=== PATIENT | female | born 1970 | race Hispanic/Latino ===

== ENCOUNTER 2017-12-07 07:44 | Day surgery (SDC) | payer OTHER ==
[~2017-12-07] VITALS: Ht 160 cm; Wt 87.9 kg
[~2017-12-07 07:44] MED LIST: BIFI4CAP PO; BIOT10005 PO; FENO160 PO; OMEP20CA10 PO; SODIUM CHLORIDE 0.9% 1000ML 1,000 ML IV ONE
[2017-12-07 08:52] VITALS: BP 128/58
[2017-12-07] MEDS ORDERED: PROPOFOL 10 MG/ML 20ML VIAL IV ONE (09:52)
[2017-12-07 10:15] VITALS: BP 105/56
[2018-01-24] MEDS ORDERED: FENO145T37 PO (13:08)
[2018-01-24] MEDS ORDERED: [UNRECOGNIZED DRUG - OTHER] PO (13:08)
== END 2017-12-07 10:50 ==
LOC: DAH 07:44 → ENDO 07:44
PROVIDERS: ATTEND Internal Medicine
DX: K31.89 Other diseases of stomach and duodenum (principal)
CPT/HCPCS: 43239; 81025; A4606; J2704; J7030

== ENCOUNTER 2018-01-28 06:40 | Inpatient (IN) | payer OTHER ==
[2018-01-24 13:05] VITALS: BP 119/65
[~2018-01-28] VITALS: Ht 165.1 cm; Wt 87.6 kg
[2018-01-28] VITALS (25 sets, daily range): BP systolic 80–152; BP diastolic 47–82
[~2018-01-28 06:40] MED LIST changes: -BIFI4CAP PO; -BIOT10005 PO; +FENO145T37 PO; -OMEP20CA10 PO; -SODIUM CHLORIDE 0.9% 1000ML 1,000 ML IV ONE; +WATER FOR INJECTION,STERILE 20 ML VIAL IJ SCH; +[UNRECOGNIZED DRUG - OTHER] PO
[2018-01-28] MEDS ORDERED: DEXAMETHASONE SOD PHOSPHATE 10MG/ML 1ML VIAL ONE ×2 (06:42→09:41)
[2018-01-28] MEDS ORDERED: LIDOCAINE PF 2% 5ML ABBOJECT ONE (06:42)
[2018-01-28] MEDS ORDERED: GLYCOPYRROLATE 0.2 MG/ML 5 ML VIAL ONE (06:42)
[2018-01-28] MEDS ORDERED: PROPOFOL 10 MG/ML 20ML VIAL IV ONE (06:43)
[2018-01-28] MEDS ORDERED: FENTANYL CITRATE PF 50 MCG/1 ML 2ML VIAL ONE ×3 (06:43→08:31)
[2018-01-28] MEDS ORDERED: MIDAZOLAM HCL 1 MG/ML 2ML VIAL ONE (06:43)
[2018-01-28] MEDS ORDERED: LACTATED RINGERS 1000ML 1,000 ML IV ONE (06:44)
[2018-01-28] MEDS: CEFOXITIN SODIUM 2 GM VIAL IVP SCH ×2 (07:00→08:20)
[2018-01-28] MEDS ORDERED: SOY155CA PO (07:22)
[2018-01-28] MEDS ORDERED: OMEP20TA25 PO (07:22)
[2018-01-28] MEDS ORDERED: BIFI4CAP PO (07:22)
[2018-01-28] MEDS ORDERED: BIOT10005 PO (07:22)
[2018-01-28] MEDS ORDERED: LIDOCAINE HCL MDV 0.5% 50ML VIAL IJ ONE (07:52)
[2018-01-28] MEDS ORDERED: CALDOLOR 800MG+NS 250ML 250 ML IV ONE (08:01)
[2018-01-28] MEDS: BUPIVACAINE/EPI/PF 0.5% 30ML VIAL IJ SCH ×2 (08:15→08:30)
[2018-01-28] MEDS ORDERED: BUPIVACAINE/EPI/PF 0.25% 30ML VIAL IJ ONE (08:39)
[2018-01-28] MEDS ORDERED: ROCURONIUM BROMIDE 10MG/1ML 5ML VL ONE ×2 (09:40)
[2018-01-28] MEDS ORDERED: SUCCINYLCHOLINE CHLORIDE 20 MG/ML 10 ML VIAL ONE (09:40)
[2018-01-28] MEDS ORDERED: METOCLOPRAMIDE 10 MG/2 ML VIAL ONE (09:41)
[2018-01-28] MEDS ORDERED: ONDANSETRON HCL MDV 20ML 2 MG/ML VIAL ONE (09:41)
[2018-01-28] MEDS ORDERED: LIDOCAINE HCL 2% JELLY 5 ML ONE (09:41)
[2018-01-28] MEDS ORDERED: LIDOCAINE HCL 4% LTA SOL 4 ML VIAL ONE (09:41)
[2018-01-28] MEDS ORDERED: CEFAZOLIN 2GM / 50 ML 2 GM/50 ML BAG IV SCH (10:15)
[2018-01-28] MEDS ORDERED: MEPERIDINE-PF 25 MG/ML SYG ONE ×2 (10:41→10:57)
[2018-01-28] MEDS ORDERED: SODIUM CHLORIDE 0.9% 1000ML 1,000 ML IV SCH (13:15)
[2018-01-28] MEDS: CEFAZOLIN SODIUM 1 GM VIAL IVP SCH ×2 (13:40→18:47)
[2018-01-28 14:08] LABS: HEMATOCRIT 35.1 % (36-48); MEAN CORPUSCULAR HGB CONC 34.3 g/dL (32.0-36.0); MEAN CORPUSCULAR VOLUME 87.4 fL (79-99); PLATELET COUNT (AUTO) 284 K/uL (130-400); RED BLOOD CELL COUNT(AUTO) 4.01 MIL/uL (4.00-5.50); RED CELL DISTRIBUTION WIDTH 14.1 % (11.0-15.5); WHITE BLOOD COUNT (AUTO) 11.5 K/uL (4.8-10.8)
[2018-01-28] MEDS: MORPHINE SULFATE 4 MG/1ML SYG IVP PRN ×2 (16:51→21:29)
[2018-01-28] MEDS: LACTATED RINGERS 1000ML 1,000 ML IV SCH ×2 (18:08→19:51)
[2018-01-28] MEDS: ONDANSETRON HCL MDV 20ML 2 MG/ML VIAL IVP PRN (19:45)
[2018-01-28] MEDS: FAMOTIDINE 20MG TAB 20 MG TAB PO SCH (19:48)
[2018-01-28] MEDS: ENOXAPARIN SODIUM 30 MG/0.3 ML SQ SCH (19:49)
[2018-01-29] VITALS (7 sets, daily range): BP systolic 91–117; BP diastolic 54–66
[2018-01-29] MEDS: ONDANSETRON HCL MDV 20ML 2 MG/ML VIAL IVP PRN ×3 (02:15→19:15)
[2018-01-29] MEDS: MORPHINE SULFATE 4 MG/1ML SYG IVP PRN ×3 (02:16→19:15)
[2018-01-29] MEDS: LACTATED RINGERS 1000ML 1,000 ML IV SCH ×3 (02:22→17:16)
[2018-01-29 05:49] LABS: BASOPHILS % (AUTO) 0.1 % (0.0-5.0); HEMATOCRIT 29.6 % (36-48); LYMPHOCYTES % (AUTO) 4.3 % (21.0-51.0); MEAN CORPUSCULAR HEMOGLOBIN 28.9 pg (27.0-33.0); MEAN CORPUSCULAR HGB CONC 33.7 g/dL (32.0-36.0); MEAN CORPUSCULAR VOLUME 85.7 fL (79-99); MONOCYTES % (AUTO) 5.8 % (3.0-13.0); NEUTROPHILS % (AUTO) 89.8 % (40.0-77.0); PLATELET COUNT (AUTO) 254 K/uL (130-400); RED BLOOD CELL COUNT(AUTO) 3.46 MIL/uL (4.00-5.50); RED CELL DISTRIBUTION WIDTH 13.7 % (11.0-15.5); WHITE BLOOD COUNT (AUTO) 16.3 K/uL (4.8-10.8)
[2018-01-29 06:08] LABS: CREATININE 0.9 mg/dL (0.5-1.5)
[2018-01-29] MEDS: FAMOTIDINE 20MG TAB 20 MG TAB PO SCH (09:00)
[2018-01-29] MEDS ORDERED: DIATR MEGLU/DIATRIZOATE SODIUM 30 ML BOTTLE ONE (09:23)
[2018-01-29] MEDS: ENOXAPARIN SODIUM 30 MG/0.3 ML SQ SCH ×2 (10:19→19:15)
[2018-01-29] MEDS ORDERED: PANTOPRAZOLE SODIUM 40 MG TABLET.DR PO SCH (21:00)
[2018-01-30] MEDS: LACTATED RINGERS 1000ML 1,000 ML IV SCH ×3 (01:11→20:26)
[2018-01-30 04:10] VITALS: BP 128/67
[2018-01-30 06:10] LABS: BASOPHILS % (AUTO) 0.1 % (0.0-5.0); HEMATOCRIT 23.2 % (36-48); LYMPHOCYTES % (AUTO) 6.3 % (21.0-51.0); MEAN CORPUSCULAR HEMOGLOBIN 29.6 pg (27.0-33.0); MEAN CORPUSCULAR HGB CONC 34.6 g/dL (32.0-36.0); MEAN CORPUSCULAR VOLUME 85.5 fL (79-99); MONOCYTES % (AUTO) 3.7 % (3.0-13.0); NEUTROPHILS % (AUTO) 89.9 % (40.0-77.0); PLATELET COUNT (AUTO) 211 K/uL (130-400); RED BLOOD CELL COUNT(AUTO) 2.72 MIL/uL (4.00-5.50); RED CELL DISTRIBUTION WIDTH 13.9 % (11.0-15.5); WHITE BLOOD COUNT (AUTO) 13.2 K/uL (4.8-10.8)
[2018-01-30 06:19] LABS: CREATININE 0.8 mg/dL (0.5-1.5); POTASSIUM 3.8 mmol/L (3.5-5.1)
[2018-01-30 07:00] VITALS: BP 111/57
[2018-01-30] MEDS: ENOXAPARIN SODIUM 30 MG/0.3 ML SQ SCH (09:00)
[2018-01-30] MEDS: PANTOPRAZOLE 40 MG/VIAL IVP SCH ×2 (10:07→20:24)
[2018-01-30 11:00] VITALS: BP 109/54
[2018-01-30 15:00] VITALS: BP 124/72
[2018-01-30 20:00] VITALS: BP 128/64
[2018-01-30] MEDS: MORPHINE SULFATE 4 MG/1ML SYG IVP PRN (20:21)
[2018-01-31] VITALS: BP 101/54
[2018-01-31 04:00] VITALS: BP 102/56
[2018-01-31 05:28] LABS: BASOPHILS % (AUTO) 0.4 % (0.0-5.0); EOSINOPHILS % (AUTO) 0.4 % (0.0-8.0); HEMATOCRIT 23.2 % (36-48); LYMPHOCYTES % (AUTO) 8.1 % (21.0-51.0); MEAN CORPUSCULAR HEMOGLOBIN 28.5 pg (27.0-33.0); MEAN CORPUSCULAR HGB CONC 33.4 g/dL (32.0-36.0); MEAN CORPUSCULAR VOLUME 85.4 fL (79-99); MONOCYTES % (AUTO) 4.6 % (3.0-13.0); NEUTROPHILS % (AUTO) 86.5 % (40.0-77.0); PLATELET COUNT (AUTO) 238 K/uL (130-400); RED BLOOD CELL COUNT(AUTO) 2.71 MIL/uL (4.00-5.50); RED CELL DISTRIBUTION WIDTH 14.1 % (11.0-15.5); WHITE BLOOD COUNT (AUTO) 13.1 K/uL (4.8-10.8)
[2018-01-31 05:47] LABS: ALBUMIN 2.4 g/dL (3.5-5.0); BILIRUBIN,TOTAL 0.8 mg/dL (0.2-1.0); CREATININE 0.8 mg/dL (0.5-1.5); POTASSIUM 3.6 mmol/L (3.5-5.1); TOTAL PROTEIN, SERUM 6.3 g/dL (6.0-8.3)
[2018-01-31 07:58] VITALS: BP 98/55
[2018-01-31] MEDS: PANTOPRAZOLE 40 MG/VIAL IVP SCH ×2 (09:00→21:06)
[2018-01-31] MEDS: HYDROCODONE/ACETAMINOPHEN 7.5/325 MG 15 ML UDCUP PO PRN ×2 (09:08→16:37)
[2018-01-31 12:07] VITALS: BP 104/54
[2018-01-31 14:38] LABS: BASOPHILS % (AUTO) 0.2 % (0.0-5.0); HEMATOCRIT 22.4 % (36-48); LYMPHOCYTES % (AUTO) 7.7 % (21.0-51.0); MEAN CORPUSCULAR HEMOGLOBIN 28.5 pg (27.0-33.0); MEAN CORPUSCULAR HGB CONC 33.4 g/dL (32.0-36.0); MEAN CORPUSCULAR VOLUME 85.3 fL (79-99); MONOCYTES % (AUTO) 5.2 % (3.0-13.0); NEUTROPHILS % (AUTO) 85.9 % (40.0-77.0); PLATELET COUNT (AUTO) 241 K/uL (130-400); RED BLOOD CELL COUNT(AUTO) 2.62 MIL/uL (4.00-5.50); RED CELL DISTRIBUTION WIDTH 13.6 % (11.0-15.5); WHITE BLOOD COUNT (AUTO) 11.5 K/uL (4.8-10.8)
[2018-01-31 20:00] VITALS: BP 113/73
[2018-01-31] MEDS ORDERED: FUROSEMIDE 10 MG/ML 2ML VIAL IV ONE (21:00)
[2018-02-01] VITALS: BP 93/48
[2018-02-01 04:00] VITALS: BP 106/53
[2018-02-01] MEDS: HYDROCODONE/ACETAMINOPHEN 7.5/325 MG 15 ML UDCUP PO PRN ×2 (04:24→11:32)
[2018-02-01 07:17] LABS: BASOPHILS % (AUTO) 0.4 % (0.0-5.0); LYMPHOCYTES % (AUTO) 10.3 % (21.0-51.0); MEAN CORPUSCULAR HEMOGLOBIN 30.5 pg (27.0-33.0); MEAN CORPUSCULAR HGB CONC 35.9 g/dL (32.0-36.0); MEAN CORPUSCULAR VOLUME 84.8 fL (79-99); MONOCYTES % (AUTO) 9.3 % (3.0-13.0); PLATELET COUNT (AUTO) 255 K/uL (130-400); RED BLOOD CELL COUNT(AUTO) 2.47 MIL/uL (4.00-5.50); RED CELL DISTRIBUTION WIDTH 13.5 % (11.0-15.5); WHITE BLOOD COUNT (AUTO) 9.6 K/uL (4.8-10.8)
[2018-02-01 07:32] LABS: HEMATOCRIT 20.9 % (36-48)
[2018-02-01 07:57] VITALS: BP 93/55
[2018-02-01] MEDS: PANTOPRAZOLE 40 MG/VIAL IVP SCH (08:47)
== END 2018-02-01 11:35 | disposition home or self-care (01) | DRG 358 ==
LOC: DAH 06:40 → 4CH 06:41
PROVIDERS: ADMIT Surgery; ATTEND Surgery
PROC: 0DP64CZ Removal of Extraluminal Device from Stomach, Percutaneous Endoscopic Approach (ICD-10-PCS; principal; 2018-01-28 08:04)
PROC: 0DUU47Z Supplement Omentum with Autologous Tissue Substitute, Percutaneous Endoscopic Approach (ICD-10-PCS; 2018-01-28 08:04)
DX: K95.09 Other complications of gastric band procedure (principal); I95.81 Postprocedural hypotension; K25.9 Gastric ulcer, unspecified as acute or chronic, without hemorrhage or perforation; K21.9 Gastro-esophageal reflux disease without esophagitis; E66.9 Obesity, unspecified; F41.9 Anxiety disorder, unspecified; Y83.8 Other surgical procedures as the cause of abnormal reaction of the patient, or of later complication, without mention of misadventure at the time of the procedure; Z68.32 Body mass index [BMI] 32.0-32.9, adult; Z98.84 Bariatric surgery status; Z82.49 Family history of ischemic heart disease and other diseases of the circulatory system; Z84.89 Family history of other specified conditions
CPT/HCPCS: 36415; 71045; 74240; 80048; 80053; 81025; 85014; 85018; 85025; 85027; 86850; 86900; 86901; 86922; 88300; A4218; A4606; C9113; J0330; J0690; J0694; J1100; J1650; J1741; J1940; J2001; J2175; J2250; J2270; J2704; J2765; J3010; J3490; J7030; J7120; Q9963

== ENCOUNTER → 2018-02-05 | Outpatient (CLI) | payer OTHER ==
[~2018-02-05] MED LIST changes: +AMOX-426 PO; +ASPI-1005 PO; +BIFI4CAP PO; +BIOT10005 PO; -FENO160 PO; +FERR324T PO; +FLUC200T8 PO; +OMEP20TA25 PO; +ONDA4TAB7 PO; +SOY155CA PO; +SULF1TAB42 PO; -WATER FOR INJECTION,STERILE 20 ML VIAL IJ SCH
[2018-02-05 12:38] LABS: HEMATOCRIT 21.9 % (36-48); MEAN CORPUSCULAR HEMOGLOBIN 29.4 pg (27.0-33.0); MEAN CORPUSCULAR HGB CONC 34.7 g/dL (32.0-36.0); MEAN CORPUSCULAR VOLUME 84.7 fL (79-99); NUCLEATED RED BLOOD CELLS 0.1 % (0.0-0.19); PLATELET COUNT (AUTO) 455 K/uL (130-400); RED BLOOD CELL COUNT(AUTO) 2.59 MIL/uL (4.00-5.50); RED CELL DISTRIBUTION WIDTH 13.9 % (11.0-15.5); WHITE BLOOD COUNT (AUTO) 9.6 K/uL (4.8-10.8)
[2018-02-05 12:59] LABS: ALBUMIN 2.5 g/dL (3.5-5.0); BILIRUBIN,TOTAL 0.4 mg/dL (0.2-1.0); CREATININE 0.7 mg/dL (0.5-1.5); POTASSIUM 3.8 mmol/L (3.5-5.1); THYROID STIMULATING HORMONE 3.3 uIU/mL (0.36-3.74); TOTAL PROTEIN, SERUM 7.5 g/dL (6.0-8.3)
[2018-02-05 13:17] LABS: % IRON SATURATION 5.7 % (22-44)
[2018-02-05 13:49] LABS: BAND NEUTROPHILS % (MANUAL) 4 % (0-2); EOSINOPHILS % (MANUAL) 1 % (1-6); LYMPHOCYTES % (MANUAL) 18 % (22-44); MONOCYTES % (MANUAL) 3 % (2-9); REACTIVE LYMPHOCYTES 3 % (0-0); SEGMENTED NEUTROPHILS % 71 % (40-70)
[2018-02-05 13:57] LABS: MAN.DIFF COMMENT-IMPRESSION MANUAL DIFFERENTIAL
[2018-02-05 14:00] LABS: PLATELET MORPHOLOGY COMMENT GIANT PLTS PRESENT
[2018-02-06 08:21] LABS: VITAMIN D, 25-HYDROXY 16.5 ng/mL (30.0-100.0)
== END ==
LOC: LAB 11:47
PROVIDERS: ATTEND Internal Medicine
DX: D50.0 Iron deficiency anemia secondary to blood loss (chronic) (principal); R53.83 Other fatigue
CPT/HCPCS: 36415; 80053; 82306; 82607; 82728; 83540; 83550; 84443; 85025

== ENCOUNTER 2018-02-12 10:39 | Observation (INO) | payer OTHER ==
[~2018-02-12] VITALS: Ht 165.1 cm; Wt 83.3 kg
[~2018-02-12 10:39] MED LIST changes: -AMOX-426 PO; -ASPI-1005 PO; -FERR324T PO; -FLUC200T8 PO; -ONDA4TAB7 PO; -SULF1TAB42 PO
[2018-02-12 12:13] LABS: BASOPHILS % (AUTO) 0.6 % (0.0-5.0); EOSINOPHILS % (AUTO) 0.7 % (0.0-8.0); HEMATOCRIT 24.3 % (36-48); MEAN CORPUSCULAR HGB CONC 32.1 g/dL (32.0-36.0); MEAN CORPUSCULAR VOLUME 83.9 fL (79-99); MONOCYTES % (AUTO) 7.8 % (3.0-13.0); NEUTROPHILS % (AUTO) 74.9 % (40.0-77.0); PLATELET COUNT (AUTO) 626 K/uL (130-400); RED CELL DISTRIBUTION WIDTH 14.3 % (11.0-15.5); WHITE BLOOD COUNT (AUTO) 12.3 K/uL (4.8-10.8)
[2018-02-12] MEDS ORDERED: IOPAMIDOL-370 75 ML VIAL IV ONE (12:20)
[2018-02-12 12:34] LABS: POTASSIUM 4.5 mmol/L (3.5-5.1)
[2018-02-12 12:39] LABS: ALBUMIN 2.6 g/dL (3.5-5.0); BILIRUBIN,TOTAL 0.4 mg/dL (0.2-1.0); TOTAL PROTEIN, SERUM 8.1 g/dL (6.0-8.3)
[2018-02-12] MEDS ORDERED: ZOSYN 3.375GM+NS 50ML 50 ML IV SCH (12:45)
[2018-02-12] MEDS ORDERED: ZOSYN 3.375GM+NS 50ML 50 ML IV ONE (12:57)
[2018-02-12] MEDS ORDERED: DIATR MEGLU/DIATRIZOATE SODIUM 30 ML BOTTLE ONE (13:06)
[2018-02-12] MEDS ORDERED: ONDANSETRON HCL MDV 20ML 2 MG/ML VIAL IVP PRN (13:30)
[2018-02-12 20:30] VITALS: BP 92/45
[2018-02-12 21:50] VITALS: BP 106/64
[2018-02-12] MEDS ORDERED: MEROPENEM 1GM IVPB PREMIXED 1 GM IV SCH (22:15)
[2018-02-12] MEDS ORDERED: MORPHINE SULFATE 2 MG/ML 1ML SYG IVP PRN (22:15)
[2018-02-12] MEDS ORDERED: ACETAMINOPHEN 650 MG SUPPOSITORY RC PRN (22:15)
[2018-02-12] MEDS ORDERED: SULF1TAB42 PO (22:35)
[2018-02-12] MEDS ORDERED: FERR324T PO (22:35)
[2018-02-13] VITALS (7 sets, daily range): BP systolic 94–108; BP diastolic 52–61
[2018-02-13] MEDS: SODIUM CHLORIDE 0.9% 1000ML 1,000 ML IV SCH ×2 (01:06→21:48)
[2018-02-13] MEDS: FLUCONAZOLE 200 MG/NS 100 ML 100 ML IV SCH ×2 (01:12→22:54)
[2018-02-13] MEDS ORDERED: COMPOUND IV MISC 1 EACH IVSOLN MISC PRN (07:30)
[2018-02-13] MEDS: MEROPENEM 1 GM VIAL IVP SCH ×3 (09:36→21:45)
[2018-02-13] MEDS: IRON SUCROSE COMPLEX 200 MG in SODIUM CHLORIDE 0.9% 50 ML IV SCH (09:36)
[2018-02-13 13:39] LABS: BASOPHILS % (AUTO) 0.5 % (0.0-5.0); EOSINOPHILS % (AUTO) 1.2 % (0.0-8.0); LYMPHOCYTES % (AUTO) 13.3 % (21.0-51.0); MEAN CORPUSCULAR HEMOGLOBIN 28.5 pg (27.0-33.0); MEAN CORPUSCULAR HGB CONC 33.8 g/dL (32.0-36.0); MEAN CORPUSCULAR VOLUME 84.4 fL (79-99); MONOCYTES % (AUTO) 7.6 % (3.0-13.0); NEUTROPHILS % (AUTO) 77.4 % (40.0-77.0); RED BLOOD CELL COUNT(AUTO) 2.84 MIL/uL (4.00-5.50); RED CELL DISTRIBUTION WIDTH 14.6 % (11.0-15.5); WHITE BLOOD COUNT (AUTO) 10.1 K/uL (4.8-10.8)
[2018-02-13 13:43] LABS: PLATELET COUNT (AUTO) 708 K/uL (130-400)
[2018-02-13] MEDS ORDERED: MEROPENEM 1GM IVPB PREMIXED 1 GM IV SCH (22:00)
[2018-02-13] MEDS ORDERED: ASPIRIN 81MG TAB.CHEW ONE (22:52)
[2018-02-14 03:50] VITALS: BP 108/54
[2018-02-14 04:42] LABS: MEAN CORPUSCULAR HEMOGLOBIN 27.3 pg (27.0-33.0); MEAN CORPUSCULAR HGB CONC 32.4 g/dL (32.0-36.0); MEAN CORPUSCULAR VOLUME 84.2 fL (79-99); PLATELET COUNT (AUTO) 618 K/uL (130-400); RED BLOOD CELL COUNT(AUTO) 2.62 MIL/uL (4.00-5.50); RED CELL DISTRIBUTION WIDTH 14.1 % (11.0-15.5); WHITE BLOOD COUNT (AUTO) 8.8 K/uL (4.8-10.8)
[2018-02-14] MEDS: MEROPENEM 1 GM VIAL IVP SCH ×2 (05:36→14:06)
[2018-02-14 07:00] VITALS: BP 117/65
[2018-02-14] MEDS: IRON SUCROSE COMPLEX 200 MG in SODIUM CHLORIDE 0.9% 50 ML IV SCH (08:22)
[2018-02-14] MEDS ORDERED: ASPIRIN 81MG TAB.CHEW PO SCH (09:00)
[2018-02-14 11:00] VITALS: BP 122/60
[2018-02-14] MEDS ORDERED: AMOX-426 PO (12:15)
[2018-02-14] MEDS ORDERED: FLUC200T8 PO (12:15)
[2018-02-14] MEDS ORDERED: ASPI-1005 PO (12:15)
[2018-02-14] MEDS ORDERED: ONDA4TAB7 PO (12:15)
== END 2018-02-14 16:10 | disposition home or self-care (01) ==
LOC: EDH 10:39 → EDHIP 10:40 → 3DH 22:01
PROVIDERS: ADMIT Surgery; ATTEND Surgery
DX: I10 Essential (primary) hypertension (principal); R60.0 Localized edema; Z79.82 Long term (current) use of aspirin
CPT/HCPCS: 36415 ×3; 74177; 74240; 80053; 85025 ×2; 85027; 96365; 96366 ×2; 96367; 96375; 96376 ×2; 99285; A4218 ×6; G0378 ×53; J1450 ×2; J1756; J2185 ×6; J2543; J7030; Q9963; Q9967

== ENCOUNTER 2018-08-12 06:23 | Day surgery (SDC) | payer OTHER ==
[2018-08-09 10:34] VITALS: BP 125/63
[2018-08-09 10:35] LABS: BASOPHILS % (AUTO) 0.7 % (0.0-5.0); EOSINOPHILS % (AUTO) 2.2 % (0.0-8.0); LYMPHOCYTES % (AUTO) 22.9 % (21.0-51.0); MEAN CORPUSCULAR HEMOGLOBIN 26.2 pg (27.0-33.0); MEAN CORPUSCULAR HGB CONC 32.3 g/dL (32.0-36.0); MONOCYTES % (AUTO) 6.2 % (3.0-13.0); PLATELET COUNT (AUTO) 350 K/uL (130-400); RED BLOOD CELL COUNT(AUTO) 4.44 MIL/uL (4.00-5.50); RED CELL DISTRIBUTION WIDTH 18.2 % (11.0-15.5); WHITE BLOOD COUNT (AUTO) 8.4 K/uL (4.8-10.8)
[~2018-08-12] VITALS: Ht 161.3 cm; Wt 77.0 kg
[2018-08-12] VITALS (16 sets, daily range): BP systolic 112–152; BP diastolic 61–79
[2018-08-12] MEDS: CLINDAMYCIN 600 MG/D5% WATER 50 ML IV SCH ×2 (05:00→07:30)
[~2018-08-12 06:23] MED LIST changes: -BIFI4CAP PO; -BIOT10005 PO; -FENO145T37 PO; +MULT1TAB66 PO; -OMEP20TA25 PO; -SOY155CA PO; +SULF1TAB42 PO; -[UNRECOGNIZED DRUG - OTHER] PO
[2018-08-12] MEDS ORDERED: LACTATED RINGERS 1000ML 1,000 ML IV ONE (07:05)
[2018-08-12] MEDS ORDERED: NEOMY SULF/POLYMYXIN B SULFATE 1 ML AMPUL IR ONE (07:09)
[2018-08-12] MEDS ORDERED: BIOT10005 PO (07:23)
[2018-08-12] MEDS ORDERED: ESTROVEN PO (07:23)
[2018-08-12] MEDS ORDERED: IBUP-2353 PO (07:25)
[2018-08-12] MEDS ORDERED: SUCCINYLCHOLINE 200MG/10ML SYR ONE (07:27)
[2018-08-12] MEDS ORDERED: LIDOCAINE PF 2% 5ML ABBOJECT ONE (07:27)
[2018-08-12] MEDS ORDERED: MIDAZOLAM HCL 1 MG/ML 2ML VIAL ONE (07:28)
[2018-08-12] MEDS ORDERED: ROCURONIUM 10MG/1ML SYR 10 MG/ML ML ONE (07:29)
[2018-08-12] MEDS ORDERED: PROPOFOL 10 MG/ML 20ML VIAL IV ONE (07:29)
[2018-08-12] MEDS ORDERED: FENTANYL CITRATE PF 50 MCG/1 ML 2ML VIAL ONE ×2 (07:30→07:54)
[2018-08-12] MEDS ORDERED: NEOSTIGMINE 5MG/5ML SYR IV ONE (08:05)
[2018-08-12] MEDS ORDERED: GLYCOPYRROLATE 1 MG/5 ML SYRINGE ONE (08:05)
[2018-08-12] MEDS ORDERED: DIATR MEGLU/DIATRIZOATE SODIUM 30 ML BOTTLE ONE (09:20)
== END 2018-08-12 11:45 | disposition home or self-care (01) ==
LOC: DAH 06:23
PROVIDERS: ATTEND Surgery
DX: S30.851A Superficial foreign body of abdominal wall, initial encounter (principal); I10 Essential (primary) hypertension; K21.9 Gastro-esophageal reflux disease without esophagitis; F41.9 Anxiety disorder, unspecified; J45.20 Mild intermittent asthma, uncomplicated; E78.5 Hyperlipidemia, unspecified; E66.9 Obesity, unspecified; Z68.29 Body mass index [BMI] 29.0-29.9, adult; Z79.1 Long term (current) use of non-steroidal anti-inflammatories (NSAID); Z79.899 Other long term (current) drug therapy; Z98.84 Bariatric surgery status; Z82.3 Family history of stroke; Z83.3 Family history of diabetes mellitus; Z82.49 Family history of ischemic heart disease and other diseases of the circulatory system
CPT/HCPCS: 36415; 49000; 49424; 49999; 84702; 85025; 87070; 87076; 87205; 88300; 88304; A4452; A4510; A6266; J0330; J2001; J2250; J2704; J2710; J3010 ×2; J3490 ×3; J7120; Q9963

== ENCOUNTER → 2018-08-23 | Outpatient (CLI) | payer OTHER ==
[~2018-08-23] MED LIST changes: +BIOT10005 PO; +ESTROVEN PO; +IBUP-2353 PO; +LIDOCAINE HCL 2% JELLY 5 ML TP ONE
[2018-08-23 15:17] VITALS: BP 116/70
== END | disposition home or self-care (01) ==
LOC: WHH 13:00
PROVIDERS: ATTEND Family Medicine
DX: L98.491 Non-pressure chronic ulcer of skin of other sites limited to breakdown of skin (principal); D64.9 Anemia, unspecified; R01.1 Cardiac murmur, unspecified; F41.9 Anxiety disorder, unspecified; I10 Essential (primary) hypertension; K21.9 Gastro-esophageal reflux disease without esophagitis; E78.5 Hyperlipidemia, unspecified; J45.20 Mild intermittent asthma, uncomplicated; E66.9 Obesity, unspecified; Z68.20 Body mass index [BMI] 20.0-20.9, adult; Z79.899 Other long term (current) drug therapy
CPT/HCPCS: 11042; 97605

== ENCOUNTER → 2018-08-26 | Outpatient (CLI) | payer OTHER ==
[~2018-08-26] MED LIST changes: -LIDOCAINE HCL 2% JELLY 5 ML TP ONE
[2018-08-26 10:03] VITALS: BP 138/75
== END | disposition home or self-care (01) ==
LOC: WHH 09:20
PROVIDERS: ATTEND Family Medicine
DX: T81.49XD Infection following a procedure, other surgical site, subsequent encounter (principal); F41.9 Anxiety disorder, unspecified; I10 Essential (primary) hypertension; K21.9 Gastro-esophageal reflux disease without esophagitis; E78.5 Hyperlipidemia, unspecified; J45.20 Mild intermittent asthma, uncomplicated; E66.9 Obesity, unspecified; Z68.20 Body mass index [BMI] 20.0-20.9, adult; Z79.899 Other long term (current) drug therapy; Z79.1 Long term (current) use of non-steroidal anti-inflammatories (NSAID); Y83.8 Other surgical procedures as the cause of abnormal reaction of the patient, or of later complication, without mention of misadventure at the time of the procedure
CPT/HCPCS: 97605; A6210; A6248

== ENCOUNTER → 2018-08-28 | Outpatient (CLI) | payer OTHER ==
[2018-08-28 14:48] VITALS: BP 118/69
== END | disposition home or self-care (01) ==
LOC: WHH 13:40
PROVIDERS: ATTEND Family Medicine
DX: T81.49XD Infection following a procedure, other surgical site, subsequent encounter (principal); F41.9 Anxiety disorder, unspecified; I10 Essential (primary) hypertension; K21.9 Gastro-esophageal reflux disease without esophagitis; E78.5 Hyperlipidemia, unspecified; J45.20 Mild intermittent asthma, uncomplicated; E66.9 Obesity, unspecified; Z68.20 Body mass index [BMI] 20.0-20.9, adult; Z79.899 Other long term (current) drug therapy; Z79.1 Long term (current) use of non-steroidal anti-inflammatories (NSAID); Y83.8 Other surgical procedures as the cause of abnormal reaction of the patient, or of later complication, without mention of misadventure at the time of the procedure
CPT/HCPCS: 97605; A6210

== ENCOUNTER → 2018-08-30 | Outpatient (CLI) | payer OTHER ==
[~2018-08-30] MED LIST changes: +LIDOCAINE HCL 2% JELLY 5 ML TP ONE
[2018-08-30 15:01] VITALS: BP 124/71
== END | disposition home or self-care (01) ==
LOC: WHH 13:15
PROVIDERS: ATTEND Family Medicine
DX: T81.49XD Infection following a procedure, other surgical site, subsequent encounter (principal); L98.491 Non-pressure chronic ulcer of skin of other sites limited to breakdown of skin; D64.9 Anemia, unspecified; K29.70 Gastritis, unspecified, without bleeding; R01.1 Cardiac murmur, unspecified; F41.9 Anxiety disorder, unspecified; I10 Essential (primary) hypertension; K21.9 Gastro-esophageal reflux disease without esophagitis; E78.5 Hyperlipidemia, unspecified; J45.20 Mild intermittent asthma, uncomplicated; E66.9 Obesity, unspecified; Z68.20 Body mass index [BMI] 20.0-20.9, adult; Z79.899 Other long term (current) drug therapy; Z79.1 Long term (current) use of non-steroidal anti-inflammatories (NSAID); Y83.8 Other surgical procedures as the cause of abnormal reaction of the patient, or of later complication, without mention of misadventure at the time of the procedure
CPT/HCPCS: 11042; 97605

== ENCOUNTER → 2018-09-03 | Outpatient (CLI) | payer OTHER ==
[~2018-09-03] MED LIST changes: -LIDOCAINE HCL 2% JELLY 5 ML TP ONE
== END | disposition home or self-care (01) ==
LOC: WHH 10:00
PROVIDERS: ATTEND Family Medicine
DX: S31.100D Unspecified open wound of abdominal wall, right upper quadrant without penetration into peritoneal cavity, subsequent encounter (principal); F41.9 Anxiety disorder, unspecified; I10 Essential (primary) hypertension; K21.9 Gastro-esophageal reflux disease without esophagitis; E78.5 Hyperlipidemia, unspecified; J45.20 Mild intermittent asthma, uncomplicated; E66.9 Obesity, unspecified; Z68.29 Body mass index [BMI] 29.0-29.9, adult; Z79.899 Other long term (current) drug therapy; Z79.1 Long term (current) use of non-steroidal anti-inflammatories (NSAID); X58.XXXD Exposure to other specified factors, subsequent encounter
CPT/HCPCS: 97605

== ENCOUNTER → 2018-09-06 | Outpatient (CLI) | payer OTHER ==
[~2018-09-06] MED LIST changes: +LIDOCAINE HCL 2% JELLY 5 ML TP ONE
[2018-09-06 15:17] VITALS: BP 119/65
== END | disposition home or self-care (01) ==
LOC: WHH 12:30
PROVIDERS: ATTEND Family Medicine
DX: T81.49XD Infection following a procedure, other surgical site, subsequent encounter (principal); L98.491 Non-pressure chronic ulcer of skin of other sites limited to breakdown of skin; F41.9 Anxiety disorder, unspecified; I10 Essential (primary) hypertension; K21.9 Gastro-esophageal reflux disease without esophagitis; E78.5 Hyperlipidemia, unspecified; J45.20 Mild intermittent asthma, uncomplicated; E66.9 Obesity, unspecified; D64.9 Anemia, unspecified; K29.70 Gastritis, unspecified, without bleeding; R01.1 Cardiac murmur, unspecified; Z68.29 Body mass index [BMI] 29.0-29.9, adult; Z79.1 Long term (current) use of non-steroidal anti-inflammatories (NSAID); Z79.899 Other long term (current) drug therapy; Y83.8 Other surgical procedures as the cause of abnormal reaction of the patient, or of later complication, without mention of misadventure at the time of the procedure
CPT/HCPCS: 11042; 97605; A6021

== ENCOUNTER → 2018-09-10 | Outpatient (CLI) | payer OTHER ==
[~2018-09-10] MED LIST changes: -LIDOCAINE HCL 2% JELLY 5 ML TP ONE
[2018-09-10 13:41] VITALS: BP 118/82
== END | disposition home or self-care (01) ==
LOC: WHH 10:20
PROVIDERS: ATTEND Family Medicine
DX: S31.109D Unspecified open wound of abdominal wall, unspecified quadrant without penetration into peritoneal cavity, subsequent encounter (principal); F41.9 Anxiety disorder, unspecified; I10 Essential (primary) hypertension; K21.9 Gastro-esophageal reflux disease without esophagitis; E78.5 Hyperlipidemia, unspecified; J45.20 Mild intermittent asthma, uncomplicated; E66.9 Obesity, unspecified; Z68.29 Body mass index [BMI] 29.0-29.9, adult; Z79.1 Long term (current) use of non-steroidal anti-inflammatories (NSAID); Z79.899 Other long term (current) drug therapy; X58.XXXD Exposure to other specified factors, subsequent encounter
CPT/HCPCS: 97605; A6021

== ENCOUNTER → 2018-09-13 | Outpatient (CLI) | payer OTHER ==
[~2018-09-13] MED LIST changes: +LIDOCAINE HCL 2% JELLY 5 ML TP ONE
[2018-09-13 14:21] VITALS: BP 136/78
== END | disposition home or self-care (01) ==
LOC: WHH 13:00
PROVIDERS: ATTEND Family Medicine
DX: T81.49XD Infection following a procedure, other surgical site, subsequent encounter (principal); F41.9 Anxiety disorder, unspecified; I10 Essential (primary) hypertension; K21.9 Gastro-esophageal reflux disease without esophagitis; E78.5 Hyperlipidemia, unspecified; J45.20 Mild intermittent asthma, uncomplicated; E66.9 Obesity, unspecified; D64.9 Anemia, unspecified; K29.70 Gastritis, unspecified, without bleeding; R01.1 Cardiac murmur, unspecified; Z68.29 Body mass index [BMI] 29.0-29.9, adult; Z79.1 Long term (current) use of non-steroidal anti-inflammatories (NSAID); Z79.899 Other long term (current) drug therapy; Y83.8 Other surgical procedures as the cause of abnormal reaction of the patient, or of later complication, without mention of misadventure at the time of the procedure
CPT/HCPCS: 11042; 97605; A6021

== ENCOUNTER → 2018-09-17 | Outpatient (CLI) | payer OTHER ==
[~2018-09-17] MED LIST changes: -LIDOCAINE HCL 2% JELLY 5 ML TP ONE
[2018-09-17 13:21] VITALS: BP 130/78
== END | disposition home or self-care (01) ==
LOC: WHH 10:40
PROVIDERS: ATTEND Family Medicine
DX: S31.100D Unspecified open wound of abdominal wall, right upper quadrant without penetration into peritoneal cavity, subsequent encounter (principal); F41.9 Anxiety disorder, unspecified; I10 Essential (primary) hypertension; K21.9 Gastro-esophageal reflux disease without esophagitis; E78.5 Hyperlipidemia, unspecified; J45.20 Mild intermittent asthma, uncomplicated; E66.9 Obesity, unspecified; Z68.29 Body mass index [BMI] 29.0-29.9, adult; Z79.1 Long term (current) use of non-steroidal anti-inflammatories (NSAID); Z79.899 Other long term (current) drug therapy; X58.XXXD Exposure to other specified factors, subsequent encounter
CPT/HCPCS: 97605; A6021

== ENCOUNTER → 2018-09-20 | Outpatient (CLI) | payer OTHER ==
[~2018-09-20] MED LIST changes: +LIDOCAINE/PRILOCAINE CREAM 5GM TUBE TP ONE
[2018-09-20 14:53] VITALS: BP 127/75
== END | disposition home or self-care (01) ==
LOC: WHH 13:00
PROVIDERS: ATTEND Family Medicine
DX: T81.89XD Other complications of procedures, not elsewhere classified, subsequent encounter (principal); F41.9 Anxiety disorder, unspecified; I10 Essential (primary) hypertension; K21.9 Gastro-esophageal reflux disease without esophagitis; E78.5 Hyperlipidemia, unspecified; J45.20 Mild intermittent asthma, uncomplicated; E66.9 Obesity, unspecified; K29.70 Gastritis, unspecified, without bleeding; R01.1 Cardiac murmur, unspecified; D64.9 Anemia, unspecified; Z68.29 Body mass index [BMI] 29.0-29.9, adult; Z79.1 Long term (current) use of non-steroidal anti-inflammatories (NSAID); Z79.899 Other long term (current) drug therapy; Y83.8 Other surgical procedures as the cause of abnormal reaction of the patient, or of later complication, without mention of misadventure at the time of the procedure
CPT/HCPCS: 11042; A6021; A6197; J3490

== ENCOUNTER → 2018-09-24 | Outpatient (CLI) | payer OTHER ==
[2018-09-24 15:54] VITALS: BP 142/85
== END | disposition home or self-care (01) ==
LOC: WHH 14:30
PROVIDERS: ATTEND Family Medicine
DX: T81.89XD Other complications of procedures, not elsewhere classified, subsequent encounter (principal); L98.491 Non-pressure chronic ulcer of skin of other sites limited to breakdown of skin; K29.70 Gastritis, unspecified, without bleeding; R01.1 Cardiac murmur, unspecified; D64.9 Anemia, unspecified; I10 Essential (primary) hypertension; K21.9 Gastro-esophageal reflux disease without esophagitis; E78.5 Hyperlipidemia, unspecified; J45.20 Mild intermittent asthma, uncomplicated; E66.9 Obesity, unspecified; F41.9 Anxiety disorder, unspecified; Z68.29 Body mass index [BMI] 29.0-29.9, adult; Z79.1 Long term (current) use of non-steroidal anti-inflammatories (NSAID); Y83.8 Other surgical procedures as the cause of abnormal reaction of the patient, or of later complication, without mention of misadventure at the time of the procedure
CPT/HCPCS: 99214; A6209; A6210; J3490

== ENCOUNTER → 2018-10-01 | Outpatient (CLI) | payer OTHER ==
[~2018-10-01] MED LIST changes: -LIDOCAINE/PRILOCAINE CREAM 5GM TUBE TP ONE
[2018-10-01 16:31] VITALS: BP 151/87
== END | disposition home or self-care (01) ==
LOC: WHH 13:30
PROVIDERS: ATTEND Family Medicine
DX: T81.89XD Other complications of procedures, not elsewhere classified, subsequent encounter (principal); L98.491 Non-pressure chronic ulcer of skin of other sites limited to breakdown of skin; K29.70 Gastritis, unspecified, without bleeding; R01.1 Cardiac murmur, unspecified; D64.9 Anemia, unspecified; I10 Essential (primary) hypertension; K21.9 Gastro-esophageal reflux disease without esophagitis; E78.5 Hyperlipidemia, unspecified; J45.20 Mild intermittent asthma, uncomplicated; E66.9 Obesity, unspecified; F41.9 Anxiety disorder, unspecified; Z68.29 Body mass index [BMI] 29.0-29.9, adult; Z79.1 Long term (current) use of non-steroidal anti-inflammatories (NSAID); Z79.899 Other long term (current) drug therapy; Y83.8 Other surgical procedures as the cause of abnormal reaction of the patient, or of later complication, without mention of misadventure at the time of the procedure
CPT/HCPCS: 99214; A6209; A6210

== ENCOUNTER → 2018-10-11 | Outpatient (CLI) | payer OTHER ==
[2018-10-11 14:55] VITALS: BP 129/78
== END | disposition home or self-care (01) ==
LOC: WHH 13:00
PROVIDERS: ATTEND Family Medicine
DX: T81.49XD Infection following a procedure, other surgical site, subsequent encounter (principal); L98.491 Non-pressure chronic ulcer of skin of other sites limited to breakdown of skin; K29.70 Gastritis, unspecified, without bleeding; R01.1 Cardiac murmur, unspecified; D64.9 Anemia, unspecified; I10 Essential (primary) hypertension; K21.9 Gastro-esophageal reflux disease without esophagitis; E78.5 Hyperlipidemia, unspecified; J45.20 Mild intermittent asthma, uncomplicated; E66.9 Obesity, unspecified; F41.9 Anxiety disorder, unspecified; Z68.29 Body mass index [BMI] 29.0-29.9, adult; Z79.1 Long term (current) use of non-steroidal anti-inflammatories (NSAID); Z79.899 Other long term (current) drug therapy; Y83.8 Other surgical procedures as the cause of abnormal reaction of the patient, or of later complication, without mention of misadventure at the time of the procedure
CPT/HCPCS: 99214

== ENCOUNTER → 2018-11-19 | Outpatient (CLI) | payer OTHER ==
[2018-11-19 10:15] LABS: BASOPHILS % (AUTO) 0.6 % (0.0-5.0); HEMATOCRIT 38.5 % (36-48); LYMPHOCYTES % (AUTO) 26.1 % (21.0-51.0); MEAN CORPUSCULAR HEMOGLOBIN 27.5 pg (27.0-33.0); MEAN CORPUSCULAR HGB CONC 33.3 g/dL (32.0-36.0); MEAN CORPUSCULAR VOLUME 82.5 fL (79-99); MONOCYTES % (AUTO) 5.8 % (3.0-13.0); NEUTROPHILS % (AUTO) 65.5 % (40.0-77.0); PLATELET COUNT (AUTO) 311 K/uL (130-400); RED BLOOD CELL COUNT(AUTO) 4.66 MIL/uL (4.00-5.50); RED CELL DISTRIBUTION WIDTH 15.5 % (11.0-15.5); WHITE BLOOD COUNT (AUTO) 7.3 K/uL (4.8-10.8)
[2018-11-19 10:50] LABS: ALBUMIN 3.6 g/dL (3.5-5.0); BILIRUBIN,TOTAL 0.3 mg/dL (0.2-1.0); CREATININE 0.8 mg/dL (0.5-1.5); POTASSIUM 3.9 mmol/L (3.5-5.1); THYROID STIMULATING HORMONE 1.95 uIU/mL (0.36-3.74); TOTAL PROTEIN, SERUM 8.1 g/dL (6.0-8.3)
[2018-11-19 11:12] LABS: HEMOGLOBIN A1C 6.1 % (4.0-6.0)
== END | disposition home or self-care (01) ==
LOC: LAB 09:36
PROVIDERS: ATTEND Internal Medicine
DX: Z13.1 Encounter for screening for diabetes mellitus (principal); R53.83 Other fatigue; R10.13 Epigastric pain; E66.3 Overweight; D50.0 Iron deficiency anemia secondary to blood loss (chronic); Z79.899 Other long term (current) drug therapy
CPT/HCPCS: 36415; 80053; 80061; 82043; 82306; 82607; 82728; 83036; 84443; 85025

== ENCOUNTER → 2020-07-15 | Outpatient (CLI) | payer OTHER ==
[~2020-07-15] MED LIST changes: -IBUP-2353 PO; +IBUP-2784 PO
[2020-07-15 13:35] LABS: BASOPHILS % (AUTO) 0.7 % (0.0-5.0); EOSINOPHILS % (AUTO) 2.9 % (0.0-8.0); LYMPHOCYTES % (AUTO) 31.3 % (21.0-51.0); MEAN CORPUSCULAR HEMOGLOBIN 28.1 pg (27.0-33.0); MEAN CORPUSCULAR HGB CONC 31.8 g/dL (32.0-36.0); MEAN CORPUSCULAR VOLUME 88.4 fL (79-99); MONOCYTES % (AUTO) 5.5 % (3.0-13.0); NEUTROPHILS % (AUTO) 59.3 % (40.0-77.0); PLATELET COUNT (AUTO) 265 K/uL (130-400); RED BLOOD CELL COUNT(AUTO) 5.09 MIL/uL (4.00-5.50); RED CELL DISTRIBUTION WIDTH 13.2 % (11.0-15.5); WHITE BLOOD COUNT (AUTO) 7.3 K/uL (4.8-10.8)
[2020-07-15 13:55] LABS: HEMOGLOBIN A1C 6.3 % (4.0-6.0)
[2020-07-15 14:04] LABS: BILIRUBIN,TOTAL 0.5 mg/dL (0.2-1.0); CREATININE 0.9 mg/dL (0.5-1.5); POTASSIUM 4.6 mmol/L (3.5-5.1); THYROID STIMULATING HORMONE 1.38 uIU/mL (0.36-3.74); TOTAL PROTEIN, SERUM 8.5 g/dL (6.0-8.3)
[2020-07-15 14:48] LABS: ERYTHROCYTE SEDIMENTATION RATE 17 MM/HR (0-30)
== END | disposition home or self-care (01) ==
LOC: LAB 12:43
PROVIDERS: ATTEND Internal Medicine
DX: K21.0 Gastro-esophageal reflux disease with esophagitis (principal); D50.0 Iron deficiency anemia secondary to blood loss (chronic); E78.1 Pure hyperglyceridemia; N60.11 Diffuse cystic mastopathy of right breast
CPT/HCPCS: 36415; 80053; 80061; 82306; 83036; 84443; 85025; 85651

== ENCOUNTER → 2020-07-27 | Outpatient (CLI) | payer OTHER ==
[~2020-07-27] MED LIST changes: +OMEP-272 PO; +PANT40TA PO
== END | disposition home or self-care (01) ==
LOC: RAH 09:05
PROVIDERS: ATTEND Internal Medicine Gastroenterology
DX: K76.0 Fatty (change of) liver, not elsewhere classified (principal); R16.0 Hepatomegaly, not elsewhere classified
CPT/HCPCS: 76700

== ENCOUNTER → 2020-07-28 | Outpatient (CLI) | payer OTHER | END | disposition home or self-care (01) | LOC: RAH 11:12 | PROVIDERS: ATTEND Internal Medicine | DX: N60.02 Solitary cyst of left breast (principal); N60.01 Solitary cyst of right breast; N60.11 Diffuse cystic mastopathy of right breast | CPT/HCPCS: 76641; 77066 ==

== ENCOUNTER 2020-08-03 07:59 | Day surgery (SDC) | payer OTHER ==
[2020-08-03] VITALS (10 sets, daily range): BP systolic 68–113; BP diastolic 31–74
[~2020-08-03] VITALS: Ht 160 cm; Wt 86.2 kg
[~2020-08-03 07:59] MED LIST changes: -ESTROVEN PO; -IBUP-2784 PO; -MULT1TAB66 PO; -OMEP-272 PO; +SODIUM CHLORIDE 0.9% 1000ML 1,000 ML IV ONE; -SULF1TAB42 PO
[2020-08-03] MEDS ORDERED: OMEP-272 PO (09:00)
[2020-08-03] MEDS ORDERED: MIDAZOLAM HCL 1 MG/ML 2ML VIAL ONE (09:59)
[2020-08-03] MEDS ORDERED: GLYCOPYRROLATE 1 MG/5 ML SYRINGE ONE (09:59)
[2020-08-03] MEDS ORDERED: PROPOFOL 10 MG/ML 20ML VIAL IV ONE (09:59)
== END 2020-08-03 11:25 | disposition home or self-care (01) ==
LOC: ENDO 07:59 → DAH 07:59 → ENDO 11:25
PROVIDERS: ATTEND Internal Medicine
DX: Z12.11 Encounter for screening for malignant neoplasm of colon (principal); K29.70 Gastritis, unspecified, without bleeding; K29.80 Duodenitis without bleeding; K63.5 Polyp of colon; E78.5 Hyperlipidemia, unspecified; E66.01 Morbid (severe) obesity due to excess calories; Z79.899 Other long term (current) drug therapy
CPT/HCPCS: 43239; 45380; 87426; A4215; A4221; A4222; A4223; A4606; A4620; A4657; A4663; J2250; J2704; J3490; J7030

== ENCOUNTER → 2021-11-21 | Outpatient (CLI) | payer OTHER ==
[~2021-11-21] MED LIST changes: +OMEP-272 PO; -SODIUM CHLORIDE 0.9% 1000ML 1,000 ML IV ONE
== END | disposition home or self-care (01) ==
LOC: OIH 10:00
PROVIDERS: ATTEND Internal Medicine
DX: Z13.6 Encounter for screening for cardiovascular disorders (principal)
CPT/HCPCS: 75571

== ENCOUNTER → 2022-02-14 | Outpatient (CLI) | payer OTHER | END | disposition home or self-care (01) | LOC: LAB 12:37 | PROVIDERS: ATTEND Obstetrics & Gynecology | DX: Z01.419 Encounter for gynecological examination (general) (routine) without abnormal findings (principal); Z11.51 Encounter for screening for human papillomavirus (HPV); N87.0 Mild cervical dysplasia | CPT/HCPCS: 36415; 88175 ==

== ENCOUNTER → 2022-02-27 | Outpatient (CLI) | payer OTHER | END | disposition home or self-care (01) | LOC: SLP 21:05 | PROVIDERS: ATTEND Internal Medicine | DX: G47.33 Obstructive sleep apnea (adult) (pediatric) (principal) | CPT/HCPCS: 95811 ==